=== PATIENT | female | born 1935 | race Caucasian/White ===

== ENCOUNTER 2017-02-23 09:03 | Outpatient (CLI) | payer MEDICARE, BC ==
[2010-05-07 10:53] VITALS: BMI 30.8
== END 2017-02-23 23:59 | disposition home or self-care (01) ==
LOC: D.MAMMO 09:03
DX: R92.8 Other abnormal and inconclusive findings on diagnostic imaging of breast (principal)

== ENCOUNTER 2017-12-30 19:59 | Emergency (ER) | payer MEDICARE, BC ==
[2010-05-07 10:53] VITALS: BMI 30.8
[2017-12-30 20:38] LABS: BASOPHILS 0.4 % (0-2); EOSINOPHILS 3.3 % (0-7); HEMATOCRIT 41.6 % (36.0-48.0); HEMOGLOBIN 13.8 g/dL (12-16); IMMATURE GRANULOCYTES 0.4 % (0-5); LYMPHOCYTES 13.5 % (15-50); MCH 32.9 pg (26.0-34.0); MCHC 33.2 g/dL (31.0-37.0); MEAN PLATELET VOLUME 9.3 fL (7.4-10.4); MONOCYTES 10.5 % (2-11); NEUTROPHILS 71.9 % (40-80); PLATELET COUNT 259 10x3/uL (130-400); RDW 13.4 % (11.5-14.5); WBC 7.3 10x3/uL (4.8-10.8)
[2017-12-30 20:49] LABS: ALBUMIN 3.2 g/dL (3.4-5.0); ALKALINE PHOSPHATASE 75 U/L (46-116); ALT (SGPT) 19 U/L (10-68); BILIRUBIN - TOTAL 0.47 mg/dL (0.2-1.3); CALC OSMOLALITY 280 mosm/kg (275-300); CALCIUM 8.3 mg/dL (8.5-10.1); CHLORIDE - SERUM 100 mmol/L (98-107); CREATINE KINASE 28 UL (21-215); CREATININE - SERUM 0.8 mg/dL (0.6-1.3); GLUCOSE 130 mg/dL (74-106); POTASSIUM - SERUM 3.5 mmol/L (3.5-5.1); PROTEIN - SERUM 6.9 g/dL (6.4-8.2); SODIUM 138 mmol/L (136-145); UREA NITROGEN 22 mg/dL (7-18); eGFR NON AFRICAN AMERICAN 73 mL/min (90-120)
[2017-12-30 21:05] LABS: INR 1.08 (0.85-1.17); PROTIME 13.6 SECONDS (11.6-15.0); TROPONIN-I < 0.017 ng/mL (0.000-0.060)
[2017-12-30 21:06] LABS: APTT 33.2 SECONDS (22.8-39.4)
[2017-12-30 21:07] LABS: D-DIMER-QUANTITATIVE 0.3 ug/mLFEU (0.20-0.54)
[2017-12-30 22:29] LABS: CKMB 0.3 U/L (0.0-3.6); PRO BNP 268 pg/mL (0-450)
[2017-12-30 23:01] LABS: APPEARANCE CLEAR (CLEAR); BILIRUBIN NEGATIVE (NEGATIVE); COLOR YELLOW (YELLOW); GLUCOSE NEGATIVE (NEGATIVE); KETONE NEGATIVE (NEGATIVE); NITRITE NEGATIVE (NEGATIVE); PROTEIN NEGATIVE (NEGATIVE); SPECIFIC GRAVITY 1.015 (1.005-1.020); UROBILINOGEN NORMAL (NORMAL)
== END 2017-12-31 00:06 | disposition other institution (70) ==
LOC: D.ER 19:59
PROVIDERS: Family Medicine
DX: G40.909 Epilepsy, unspecified, not intractable, without status epilepticus (principal); R55 Syncope and collapse; G30.9 Alzheimer's disease, unspecified; F02.80 Dementia in other diseases classified elsewhere, unspecified severity, without behavioral disturbance, psychotic disturbance, mood disturbance, and anxiety

== ENCOUNTER 2018-09-23 11:42 | Emergency (ER) | payer MEDICARE, BC ==
[~2018-09-23] VITALS: Ht 170.2 cm; Wt 93.2 kg
[2018-09-23 11:44] VITALS: Ht 170.2 cm; Wt 93.2 kg
[2018-09-23] MEDS ORDERED: XARELTO20 MG PO (11:46)
[2018-09-23] MEDS ORDERED: UNKNOWN MEDICATIONS (11:46)
[2018-09-23] MEDS ORDERED: ULTRAM50 MG PO (13:18)
[2018-09-23 14:54] VITALS: BP 128/78
== END 2018-09-23 14:55 | disposition home or self-care (01) ==
LOC: D.ER 11:42
DX: S80.02XA Contusion of left knee, initial encounter (principal); W18.30XA Fall on same level, unspecified, initial encounter; Y93.89 Activity, other specified; Y92.512 Supermarket, store or market as the place of occurrence of the external cause; S00.83XA Contusion of other part of head, initial encounter; G30.9 Alzheimer's disease, unspecified; F02.80 Dementia in other diseases classified elsewhere, unspecified severity, without behavioral disturbance, psychotic disturbance, mood disturbance, and anxiety